=== PATIENT | female | born 1995 | race Caucasian/White ===

== ENCOUNTER 2024-03-02 09:00 | Outpatient (RCR) | payer OTHER, SELFPAY ==
[2024-02-22 09:35] VITALS: BMI 24.7
[2024-02-22 09:36] VITALS: BP 90/58; PULSE 64; TEMP 36.6
[2024-02-22 11:11] LABS: Amphetamine Screen Urine Not Detected (Not Detect); Barbiturates, Urine Not Detected (Not Detect); Benzodiazepines Screen Urine Not Detected (Not Detect); Buprenorphine Scr Not Detected (Not Detect); Cannabinoid Screen Urine POSITIVE (Not Detect); Cocaine Screen Urine Not Detected (Not Detect); Fentanyl, urine Not Detected (Not Detect); Methadone Screen, Urine Not Detected (Not Detect); Opiate Screen Urine Not Detected (Not Detect); Oxycodone Screen Urine Not Detected (Not Detect); Phencyclidine Screen Urine Not Detected (Not Detect)
--- NOTE | 2024-02-24 15:16 | HO.PHP ---
Pt's case has been opened and reviewed in treatment team.
--- NOTE | 2024-02-24 22:55 | P.HPPSP_ITS ---
[facility] Date of Service: 02/24/24 Chief Complaint: MDD,PTSD,JAMESON Sources of Information: patient interviewed, chart reviewed and crisis/core team assessment reviewed [facility], [facility] Medical History (Updated 03/02/24 @ 04:23 by Yessy Landaverde MD) Herniation of left side of L4-L5 intervertebral disc Hiatal hernia GERD (gastroesophageal reflux disease) Asthma Surgical History (Updated 02/22/24 @ 12:28 by Radha Rubi RN) H/O knee surgery Diagnostics Vital Signs (24Hr): BMI result Body Mass Index 24.7 Meds/Allergies Meds Home Medications ?Medication ?Instructions ?Recorded ?Confirmed ?Type drospirenone 3 mg-ethinyl 1 tab PO DAILY 02/22/24 02/22/24 History estradiol 0.02 mg tablet (Karina (28)) fluvoxamine 100 mg tablet 100 mg PO DAILY 02/22/24 02/22/24 History omeprazole 20 mg capsule,delayed 20 mg PO DAILY 02/22/24 02/22/24 History release Allergies Allergies Allergy/AdvReac Type Severity Reaction Status Date / Time SEASONAL ALLERGIES Allergy Intermediate RUNNY NOSE Uncoded 11/16/19 19:47 Assessment & Plan Assessment & Plan (1) MDD (major depressive disorder), recurrent severe, without psychosis: Status: Acute Code(s): F33.2 - Major depressive disorder, recurrent severe without psychotic features (2) ADHD (attention deficit hyperactivity disorder): Status: Acute Code(s): F90.9 - Attention-deficit hyperactivity disorder, unspecified type (3) JAMESON (generalized anxiety disorder): Status: Acute Code(s): F41.1 - Generalized anxiety disorder (4) PTSD (post-traumatic stress disorder): Status: Acute Code(s): F43.10 - Post-traumatic stress disorder, unspecified (5) Cannabis abuse: Status: Acute Code(s): F12.10 - Cannabis abuse, uncomplicated Plan Admit to [facility] VS reviewed: abrefile, BP 90/58;?64 bpm start lurasidone 20 mg qd w supper lower dose of fluvoxamine to 75 mg qd stop clonidine 0.1 mg TID start guanfacine ER 1 mg qd continue other regular medications? Routine lab work ordered as indicated EKG, routine for baseline QTc for medication considerations as indicated UDS as indicated [facility] reviewed Continue to monitor as per protocol Patient educated on: diagnosis, medication risk/benefits and substance abuse Informed Consent: understands Reason for continued partial hosp. stay Substantial Risk for: inability to function, rapid decompensation and med/psych decompensation Certification I certify that partial hospital treatment is medically necessary due to the symptoms and problems resulting from the patient's mental illness and the failure to treat the patient at the partial hospital level of care would likely result in the patient requiring inpatient psychiatric care which could not be prevented at a less intensive level of care. Time Spent With Patient Time: Total time managing care of this patient today _60___ minutes.
--- NOTE | 2024-03-02 11:51 | HO.PHP ---
Pt and this chief underwriter went over treatment plan review. During this conversation, she told this chief underwriter she expressed to her therapist that she wants to work on her trauma, but her therapist suggested she tried this program instead. She does not feel like there is benefit in opening up and receiving feedback and support from others within the group setting. She verbalized resolving her trauma with help her mental health and cannabis use which she uses to escape those feelings. She has left program for the day as this is a voluntary program, and the patient stated that she is not benefitting. She will be returning to program tomorrow morning to discuss med changes with the program psychiatrist tomorrow. [facility] staff has been updated.
--- NOTE | 2024-03-03 23:05 | HO.PHPPROGNO ---
Subjective Subjective Date of Service: 03/03/24 Reason For Visit: MDD,PTSD,JAMESON Diagnostics Vital Signs (24Hr): BMI result Body Mass Index 24.7 Assessment & Plan Certification I certify that partial hospital treatment is medically necessary due to the symptoms and problems resulting from the patient's mental illness and the failure to treat the patient at the partial hospital level of care would likely result in the patient requiring inpatient psychiatric care which could not be prevented at a less intensive level of care. Total time managing care of this patient today ____ minutes. Discharge Plan Discharge Attending provider: Yessy Landaverde Medications: New lurasidone 40 mg tablet 40 mg PO QPM Qty: 30 0RF Rx Instructions: must administer with food (at least 350 calories) Continued omeprazole 20 mg Capsule,Delayed Release(Dr/Ec) 20 mg PO DAILY Rx Instructions: Last picked up in August 2023. drospirenone-ethinyl estradiol [Karina (28)] 3-0.02 mg Tablet 1 tab PO DAILY guanfacine 1 mg tablet extended release 24 hr 1 mg PO DAILY Qty: 30 0RF Changed fluvoxamine 50 mg tablet 25 mg PO BEDTIME Qty: 30 0RF Rx Instructions: continue to taper off after 7-10 days clonidine HCl 0.1 mg Tablet 0.1 mg PO QAM PRN (Reason: anxiety) Qty: 30 0RF Discontinued fluvoxamine 100 mg Tablet 100 mg PO DAILY Stand Alone Forms: Patient Portal Discharge page Patient Education: ADHD in Adults (DC), Depression (DC), Post Traumatic Stress Disorder (DC), Cannabis Abuse (DC) Print Language: Kazakh
== END 2024-03-02 23:59 | disposition home or self-care (01) ==
LOC: HO.PHPA 09:00
PROVIDERS: Visit Provider Psychiatry & Neurology Psychiatry
DX: F33.2 Major depressive disorder, recurrent severe without psychotic features (principal); F90.9 Attention-deficit hyperactivity disorder, unspecified type; F41.1 Generalized anxiety disorder; F43.10 Post-traumatic stress disorder, unspecified; F12.10 Cannabis abuse, uncomplicated; Z79.899 Other long term (current) drug therapy
CPT/HCPCS: 80307; 90791; 90853

== ENCOUNTER → 2024-03-02 09:00 | Outpatient (BNV) | payer OTHER, SELFPAY | PROVIDERS: Visit Provider Psychiatry & Neurology Psychiatry | DX: F33.2 Major depressive disorder, recurrent severe without psychotic features (principal); F90.9 Attention-deficit hyperactivity disorder, unspecified type; F41.1 Generalized anxiety disorder; F43.10 Post-traumatic stress disorder, unspecified; F12.10 Cannabis abuse, uncomplicated | CPT/HCPCS: 99499 ==